=== PATIENT | female | born 1995 | race African-American/Black ===

== ENCOUNTER 2018-03-09 15:50 | Emergency (ER) | payer MEDICAID, OTHER ==
[~2018-03-09] VITALS: Ht 160 cm; Wt 86.2 kg
[2018-03-09 16:10] VITALS: BP 133/50
== END 2018-03-09 19:53 | disposition home or self-care (01) ==
LOC: ER 15:58
DX: S60.453A Superficial foreign body of left middle finger, initial encounter (principal); F12.10 Cannabis abuse, uncomplicated; W20.8XXA Other cause of strike by thrown, projected or falling object, initial encounter; Y93.89 Activity, other specified; Y92.89 Other specified places as the place of occurrence of the external cause; Y99.8 Other external cause status
CPT/HCPCS: 73130